=== PATIENT | female | born 1990 | race African-American/Black ===

== ENCOUNTER 2020-07-06 08:31 | Outpatient (CLI) | payer OTHER | END 2020-07-07 03:33 | disposition home or self-care (01) | LOC: RAD 08:31 | DX: M85.89 Other specified disorders of bone density and structure, multiple sites (principal) ==

== ENCOUNTER 2022-06-25 15:59 | Outpatient (CLI) | payer OTHER | END 2022-06-25 19:23 | disposition home or self-care (01) | LOC: RAD 15:59 | PROVIDERS: ATTEND Nurse Practitioner Family | DX: E55.9 Vitamin D deficiency, unspecified (principal); E56.8 Deficiency of other vitamins; M06.9 Rheumatoid arthritis, unspecified; M85.89 Other specified disorders of bone density and structure, multiple sites; Z79.52 Long term (current) use of systemic steroids ==